=== PATIENT | female | born 2000 | race Caucasian/White ===

== ENCOUNTER 2024-07-06 21:09 | Emergency (ER) | payer OTHER ==
[2024-07-06 21:27] LABS: BASOPHILS ABSOLUTE AUTO 0.03 K/uL (0.00-0.20); BASOPHILS PERCENT AUTO 0.2 % (0.0-2.0); EOSINOPHILS ABSOLUTE AUTO 0.05 K/uL (0.00-0.50); EOSINOPHILS PERCENT AUTO 0.4 % (0.0-5.0); HEMOGLOBIN 15.3 g/dL (11.7-15.5); LYMPHOCYTES ABSOLUTE AUTO 2.04 K/uL (0.50-3.50); LYMPHOCYTES PERCENT AUTO 15.3 % (10.0-50.0); MEAN CORPUSCULAR HEMOGLOBIN 31.5 pg (28.2-33.3); MEAN CORPUSCULAR HGB CONC 35.6 g/dL (31.7-36.0); MEAN CORPUSCULAR VOLUME 88.5 fL (84.0-98.0); MONOCYTES ABSOLUTE AUTO 0.63 K/uL (0.00-1.00); MONOCYTES PERCENT AUTO 4.7 % (2.0-14.0); NEUTROPHILS ABSOLUTE AUTO 10.56 K/uL (1.40-7.00); NEUTROPHILS PERCENT AUTO 79.4 % (45.0-80.0); PLATELET COUNT,PLT 293 K/uL (150-350); RED BLOOD CELL COUNT 4.86 M/uL (3.77-5.09); RED CELL DISTRIBUTION WIDTH 11.3 % (11.2-14.1); WHITE BLOOD CELL COUNT,WBC 13.3 K/uL (4.0-10.2)
[2024-07-06 21:30] LABS: APPEARANCE,URINE SLIGHTLY CLOUDY; BILIRUBIN,URINE NEGATIVE (NEGATIVE); COLOR,URINE YELLOW; GLUCOSE,URINE NEGATIVE (NEGATIVE); KETONES,URINE NEGATIVE (NEGATIVE); LEUKOCYTE ESTERASE,URINE NEGATIVE (NEGATIVE); NITRITE,URINE NEGATIVE (NEGATIVE); OCCULT BLOOD,URINE NEGATIVE (NEGATIVE); PH,URINE 8.5 (5.0-9.0); PROTEIN,URINE NEGATIVE (NEGATIVE); UROBILINOGEN,URINE 0.2 E.U./dL (0.2-1.0)
[2024-07-06 21:39] LABS: BACTERIA,URINE RARE /HPF (NONE TO FEW); EPITHELIAL CELLS,URINE RARE /LPF; RBC,URINE 0-5 /HPF; WBC,URINE 0-5 /HPF
[2024-07-06 21:48] LABS: ALANINE AMINOTRANSFERASE,ALT 32 U/L (12-78); ALBUMIN 4.5 g/dL (3.4-5.0); ALKALINE PHOSPHATASE 89 IU/L (46-116); ANION GAP 13.2 meq/L (7-15); ASPARTATE AMNIOTRANSFERASE,AST 13 U/L (15-37); BILIRUBIN TOTAL 0.4 mg/dL (0.2-1.0); BLOOD UREA NITROGEN,BUN 10 mg/dL (7-18); CALCIUM 9.8 mg/dL (8.5-10.1); CARBON DIOXIDE,CO2 25.8 mmol/L (21.0-32.0); CHLORIDE,CL 101 mmol/L (98-107); CREATININE 1.02 mg/dL (0.51-1.17); ESTIMATED GFR 79 mL/min (>=60); GLUCOSE RANDOM 111 mg/dL (70-99); POTASSIUM,K 3.9 mmol/L (3.5-5.1); PROTEIN TOTAL,TP 8.4 g/dL (6.4-8.2); SODIUM,NA 140 mmol/L (136-145)
[2024-07-06] MEDS: Sodium Chloride 0.9% 1,000 ML IV ONE (21:55)
[2024-07-06] MEDS: Sodium Chloride 0.9% 10 ML Syringe FLUSH PRN (21:55)
[2024-07-06] MEDS: Ondansetron 4 MG/2 ML SDV IVPUSH ONE (21:55)
[2024-07-06] MEDS: Iopamidol 612 MG/ML 100 ML Bottle IVPUSH ONE (22:05)
[2024-07-06 23:00] VITALS: BP 126/80; PULSE 80
[2024-07-06] MEDS: Take Home: Ondansetron 4 MG Tab.DIS, 5 Tab Pack PO ONE (23:59)
== END 2024-07-06 23:45 | disposition home or self-care (01) ==
LOC: LL.ED 21:09
DX: K52.9 Noninfective gastroenteritis and colitis, unspecified (principal); J45.909 Unspecified asthma, uncomplicated; Z88.0 Allergy status to penicillin
CPT/HCPCS: 36415; 74178; 80053; 81001; 81025; 83605; 85025; 96361; 96374; 99284; J2405; J7030; Q9967; J3490